=== PATIENT | male | born 1970 | race African-American/Black ===

== ENCOUNTER 2019-10-11 11:59 | Inpatient (IN) | payer MEDICAID ==
[~2019-10-11] VITALS: Ht 175.3 cm; Wt 90.7 kg
[2019-10-11] MEDS ORDERED: SODIUM CHLORIDE 0.9% 1,000 ML IV ONE (12:28)
[2019-10-11 13:42] LABS: BASOPHILS % 0.6 % (0.0-2.0); EOSINOPHILS % 2.3 % (0.0-5.0); HEMATOCRIT. 41.7 % (42.0-52.0); HEMOGLOBIN. 13.3 g/dL (14.0-18.0); LYMPHOCYTES % 38.6 % (20.0-50.0); MEAN CORPUSCULAR HEMOGLOBIN 26.8 pg (28.0-32.0); MEAN CORPUSCULAR VOLUME 84.1 fL (80.0-94.0); MEAN PLATELET VOLUME 8.3 fl (7.4-10.4); MONOCYTES % 4.5 % (2.0-8.0); PLATELET 165 x1000/uL (130-400); RED BLOOD CELL COUNT 4.96 mill/uL (4.7-6.1); RED CELL DISTRIBUTION WIDTH 14.2 % (11.6-14.6)
[2019-10-11 13:48] LABS: CHLORIDE 109 mEq/L (98-107); INR 1.1; PROTHROMBIN TIME 11.9 sec (9.6-11.0)
[2019-10-11 13:55] LABS: ETHANOL BLOOD < 10 mg/dL
[2019-10-11] MEDS ORDERED: POTASSIUM CHLORIDE 20MEQ TABLET SR PO ONE (14:00)
[2019-10-11 14:08] LABS: CARBAMAZEPINE 11.5 ug/mL (4-12)
[2019-10-11] MEDS ORDERED: PHENYTOIN SODIUM EXTENDED 100MG CAPSULE PO ONE (14:30)
[2019-10-11 14:34] LABS: CLARITY URINE CLEAR (CLEAR); COLOR URINE YELLOW (YELLOW); KETONES URINE NEGATIVE (NEGATIVE); LEUKOCYTE ESTERASE URINE NEGATIVE (NEGATIVE); NITRITE URINE NEGATIVE (NEGATIVE); OCCULT BLOOD URINE NEGATIVE (NEGATIVE); PH URINE 6.5 (4.5-8.0); PROTEIN URINE NEGATIVE (NEGATIVE)
[2019-10-11 15:00] LABS: *AMPHETAMINES SCREEN URINE NEGATIVE (NEGATIVE); *BARBITURATES SCREEN URINE NEGATIVE (NEGATIVE); *BENZODIAZEPINES SCREEN URINE PRESUMTIVE POSITIVE (NEGATIVE); *COCAINE SCREEN URINE NEGATIVE (NEGATIVE); METHADONE URINE SCREEN NEGATIVE (NEGATIVE); OPIATES URINE SCREEN NEGATIVE (NEGATIVE)
[2019-10-11 15:01] LABS: CANNABINOID URINE SCREEN NEGATIVE (NEGATIVE); PHENCYCLIDINE URINE SCREEN NEGATIVE (NEGATIVE)
[2019-10-11] MEDS ORDERED: SODIUM CHLORIDE 0.9% 1,000 ML IV SCH (16:13)
[2019-10-11] MEDS ORDERED: HYDROCODONE/ACETAMINOPHEN 5/325MG TABLET PO PRN (16:15)
[2019-10-11] MEDS ORDERED: ACETAMINOPHEN 325MG TABLET PO PRN (16:15)
[2019-10-11] MEDS ORDERED: LORAZEPAM 2MG/ML CPJ IV PRN (16:15)
[2019-10-11] MEDS ORDERED: MAGNESIUM/ALUMINUM HYDROXIDE/SIMETHICONE 30ML UDC PO PRN (16:15)
[2019-10-11] MEDS ORDERED: GUAIFENESIN 200MG/10ML SUGAR FREE UDC PO PRN (16:15)
[2019-10-11] MEDS ORDERED: CLONIDINE 0.1MG TABLET PO PRN (16:15)
[2019-10-11] MEDS ORDERED: ONDANSETRON HCL 4MG/2ML INJ IV PRN (16:15)
[2019-10-11] MEDS ORDERED: CARBAMAZEPINE 100MG TABLET CHEW PO NR (17:15)
[2019-10-11 22:40] VITALS: BP 133/74
[2019-10-12 00:25] VITALS: BP 113/80
[2019-10-12 05:22] VITALS: BP 127/78
[2019-10-12] MEDS ORDERED: CARB200T PO (06:04)
[2019-10-12] MEDS ORDERED: PHEN100C4 PO (06:04)
[2019-10-12] MEDS ORDERED: [UNRECOGNIZED DRUG - CODE] PO (06:04)
[2019-10-12 06:41] LABS: BASOPHILS % 0.6 % (0.0-2.0); EOSINOPHILS % 7.1 % (0.0-5.0); HEMATOCRIT. 37.4 % (42.0-52.0); HEMOGLOBIN. 11.9 g/dL (14.0-18.0); MEAN CORPUSCULAR HEMOGLOBIN 26.6 pg (28.0-32.0); MEAN CORPUSCULAR VOLUME 83.3 fL (80.0-94.0); MEAN PLATELET VOLUME 8.3 fl (7.4-10.4); MONOCYTES % 6.7 % (2.0-8.0); NEUTROPHILS % 41.6 % (40.0-76.0); PLATELET 214 x1000/uL (130-400); RED BLOOD CELL COUNT 4.48 mill/uL (4.7-6.1); RED CELL DISTRIBUTION WIDTH 14.2 % (11.6-14.6)
[2019-10-12] MEDS ORDERED: NON FORMULARY PATIENT HOME MED PO SCH (06:45)
[2019-10-12] MEDS ORDERED: CARBAMAZEPINE 200MG TABLET PO SCH (06:45)
[2019-10-12 07:54] LABS: CHLORIDE 110 mEq/L (98-107)
[2019-10-12 08:00] VITALS: BP 133/91
[2019-10-12] MEDS ORDERED: CLORAZEPATE 3.75 MG PO SCH (09:00)
[2019-10-12] MEDS ORDERED: PHENYTOIN SODIUM EXTENDED 100MG CAPSULE PO SCH (09:00)
== END 2019-10-12 10:30 | disposition left against medical advice (07) | DRG 204 ==
LOC: ER 11:59 → 6WST 15:41 → EDBEDREQ 15:43 → ENRESERV 20:02
PROVIDERS: ADMIT Hospitalist; ATTEND Hospitalist
DX: R55 Syncope and collapse (principal); R56.9 Unspecified convulsions; R19.7 Diarrhea, unspecified; Z53.29 Procedure and treatment not carried out because of patient's decision for other reasons; R10.9 Unspecified abdominal pain; R42 Dizziness and giddiness
CPT/HCPCS: 36415; 71045; 74176; 80053; 80156; 80185; 80305; 80320; 81003; 83880; 84484; 85025; 86850; 86900; 93005; 93970; 99291; J7030; G0480

== ENCOUNTER 2020-02-27 20:22 | Inpatient (IN) | payer MEDICAID ==
[~2020-02-27] VITALS: Ht 172.7 cm; Wt 106.6 kg
[~2020-02-27 20:22] MED LIST: CARB200T PO; PHEN100C4 PO; [UNRECOGNIZED DRUG - CODE] PO
[2020-02-27] MEDS ORDERED: SODIUM CHLORIDE 0.9% 1,000 ML IV ONE (20:58)
[2020-02-27 23:14] LABS: BASOPHILS % 0.2 % (0.0-2.0); EOSINOPHILS % 0.5 % (0.0-5.0); HEMATOCRIT. 43.7 % (42.0-52.0); HEMOGLOBIN. 14.2 g/dL (14.0-18.0); LYMPHOCYTES % 16.1 % (20.0-50.0); MEAN CORPUSCULAR HEMOGLOBIN 27.2 pg (28.0-32.0); MEAN CORPUSCULAR VOLUME 83.5 fL (80.0-94.0); MEAN PLATELET VOLUME 8.3 fl (7.4-10.4); NEUTROPHILS % 76.2 % (40.0-76.0); PLATELET 235 x1000/uL (130-400); RED BLOOD CELL COUNT 5.23 mill/uL (4.7-6.1); RED CELL DISTRIBUTION WIDTH 13.9 % (11.6-14.6)
[2020-02-27 23:23] LABS: PARTIAL THROMBOPLASTIN TIME 25.4 sec (23.4-31.0)
[2020-02-27 23:23] LABS: CHLORIDE 108 mEq/L (98-107)
[2020-02-27 23:28] LABS: ETHANOL BLOOD < 10 mg/dL
[2020-02-27] MEDS ORDERED: SODIUM CHLORIDE 0.9% 1,000 ML IV NR (23:39)
[2020-02-27] MEDS ORDERED: ASPIRIN 325MG EC TABLET PO NR (23:45)
[2020-02-28 01:32] LABS: CLARITY URINE CLEAR (CLEAR); COLOR URINE YELLOW (YELLOW); KETONES URINE NEGATIVE (NEGATIVE); LEUKOCYTE ESTERASE URINE NEGATIVE (NEGATIVE); NITRITE URINE NEGATIVE (NEGATIVE); OCCULT BLOOD URINE NEGATIVE (NEGATIVE); PH URINE 5.5 (4.5-8.0); PROTEIN URINE 1+ (NEGATIVE); SPECIFIC GRAVITY URINE 1.025 (1.005-1.030); UROBILINOGEN URINE 0.2 E.U./dL (0.2-1.0)
[2020-02-28 02:35] LABS: *BENZODIAZEPINES SCREEN URINE PRESUMTIVE POSITIVE (NEGATIVE); *COCAINE SCREEN URINE NEGATIVE (NEGATIVE)
[2020-02-28 02:36] LABS: *AMPHETAMINES SCREEN URINE NEGATIVE (NEGATIVE); *BARBITURATES SCREEN URINE NEGATIVE (NEGATIVE); CANNABINOID URINE SCREEN NEGATIVE (NEGATIVE); METHADONE URINE SCREEN NEGATIVE (NEGATIVE); OPIATES URINE SCREEN NEGATIVE (NEGATIVE); PHENCYCLIDINE URINE SCREEN NEGATIVE (NEGATIVE)
[2020-02-28] MEDS ORDERED: ONDANSETRON HCL 4MG/2ML INJ IV PRN (09:45)
[2020-02-28] MEDS ORDERED: ACETAMINOPHEN 325MG TABLET PO PRN (09:45)
[2020-02-28 15:30] VITALS: BP 136/73
[2020-02-28 16:00] VITALS: BP 136/73
[2020-02-28] MEDS ORDERED: PHENYTOIN SODIUM EXTENDED 100MG CAPSULE PO SCH (17:00)
[2020-02-28] MEDS ORDERED: CARBAMAZEPINE 200MG TABLET PO SCH (17:00)
[2020-02-28 20:00] VITALS: BP 142/82
[2020-02-28] MEDS: CLORAZEPATE 3.75 MG PO SCH (22:23)
[2020-02-28] MEDS: PHENYTOIN SODIUM EXTENDED 100MG CAPSULE PO SCH (22:24)
[2020-02-28] MEDS: CARBAMAZEPINE 200MG TABLET PO SCH (22:24)
[2020-02-29] VITALS: BP 150/91
[2020-02-29 04:00] VITALS: BP 113/69
[2020-02-29] MEDS: CARBAMAZEPINE 200MG TABLET PO SCH (06:31)
[2020-02-29 08:00] VITALS: BP 124/83
[2020-02-29] MEDS: CLORAZEPATE 3.75 MG PO SCH (08:15)
[2020-02-29] MEDS: PHENYTOIN SODIUM EXTENDED 100MG CAPSULE PO SCH (08:15)
[2020-02-29 09:45] VITALS: BP 124/83
== END 2020-02-29 11:25 | disposition home or self-care (01) | DRG 48 ==
LOC: ER 20:22 → 5WST 02-28 00:01 → EDBEDREQ 02-28 00:28 → EDBEDREQTM 02-28 00:28 → EDBEDREQDT 02-28 00:28 → ENRESERV 02-28 14:29
PROVIDERS: ADMIT Internal Medicine; ATTEND Internal Medicine
DX: G90.8 Other disorders of autonomic nervous system (principal); E87.8 Other disorders of electrolyte and fluid balance, not elsewhere classified; G40.909 Epilepsy, unspecified, not intractable, without status epilepticus; R57.9 Shock, unspecified; Z79.899 Other long term (current) drug therapy
CPT/HCPCS: 36415; 71045; 80053; 80185; 80305; 80320; 81003; 83880; 84484; 85025; 93005; 93306; 99291; J7030; G0480